=== PATIENT | female | born 1995 | race Caucasian/White ===

== ENCOUNTER 2016-06-26 07:19 | Emergency (ER) | payer OTHER ==
[2016-06-26 07:29] VITALS: BP 107/45
--- NOTE | 2016-06-26 08:06 | PROVIDER DOCUMENTATION ---
HPI-General Adult - General Chief Complaint: Cold Symptoms Stated Complaint: POSS BRONCHITIS Time Seen by Provider: 06/26/16 07:48 Source: patient Allergies/Adverse Reactions: Patient Allergies Allergy/AdvReac Type Severity Reaction Status Date / Time No Known Allergies Allergy Verified 06/26/16 07:45 Home Medications: Home Medication List Medication Instructions Recorded Confirmed Last Taken Type No Home Medications 06/26/16 06/26/16 Unknown History - History of Present Illness -Gen Adult Nature of Presenting Problems: Pt reports having "bronchitis" every winter and needing antibiotics. Now with one week history of non productive cough, sinus congestion but without sore throat, significant fever, myalgias, eetc. Associated Symptoms: reports: cough, EENT symptoms, sinus congestion/drainage. denies: chest pain, diaphoresis, diarrhea Similar Symptoms Previously?: Yes Recently seen or treated by another doctor?: No Review of Systems - Adult - REVIEW OF SYSTEMS - ADULT Constitutional: reports: no symptoms reported Eyes: reports: no symptoms reported Ears, Nose, Mouth & Throat: reports: no symptoms reported Cardiovascular: reports: no symptoms reported Respiratory: reports: see HPI Gastrointestinal: reports: no symptoms reported Genitourinary: reports: no symptoms reported Musculoskeletal: reports: no symptoms reported Integumentary: reports: no symptoms reported Neurological: reports: no symptoms reported Psychiatric: reports: no symptoms reported Endocrine: reports: no symptoms reported Hematologic/Lymphatic: reports: no symptoms reported Allergic/Immunologic: reports: no symptoms reported All Other Systems: Reviewed and Negative Past History - Adult - PAST MEDICAL HISTORY-ADULT Review of Records: reports: Nursing Assessment Review, Medications Reviewed Respiratory: reports: asthma Gastrointestinal: reports: GERD - PRIOR SURGERIES/PROCEDURES Surgical/Procedure History: reports: none - IMMUNIZATION STATUS Childhood Immunizations: UTD Flu Vaccine: See Nurse Assessment - FAMILY HISTORY Family History: reviewed, not pertinent, kidney stones (mom has history, and had problem passing 1mm stone) Physical Exam-General - PHYSICAL EXAM-ADULT Initial Vital Signs Reviewed: Yes - CONSTITUTIONAL General Appearance: appears well - EYES Eyes: PERRL/EOMI, pink conjunctivae - HEAD, EARS, NOSE, MOUTH & THROAT HENMT: moist mucous membranes, pharynx normal - NECK Neck: non-tender, full range of motion, supple - RESPIRATORY Respiratory: lungs clear - CARDIOVASCULAR Cardiovascular: normal peripheral pulses, regular rate, rhythm, no edema, no gallop - GASTROINTESTINAL (ABDOMEN) Abdominal Exam: normal bowel sounds, non tender - GENITOURINARY Female Genitalia/Pelvic Exam: deferred Male Genitalia: deferred Rectal Exam: deferred - MUSCULOSKELETAL Back Exam: no CVA tenderness Extremity: normal range of motion - SKIN Integumentary: normal turgor - NEUROLOGIC Neurologic: grossly normal - PSYCHIATRIC Psych/Mental Status: normal mood/affect Progress - PLAN OF CARE/RESULTS Progress/Plan/Lab Results: Vital Signs Temp Pulse Resp BP Pulse Ox 06/26/16 07:24 97.5 F L 75 18 107/45 100 No Known Allergies Allergy (Verified 06/26/16 07:45) No Home Medications 06/26/16 Departure - Departure Time of Disposition Order: 08:10 DIAGNOSIS: Viral syndrome Disposition: HOME 01 Certified Medical Emergency: Emergent Condition: Good Additional Instructions: Take Claritin D (OTC)
== END 2016-06-26 08:20 | disposition home or self-care (01) ==
LOC: ED 07:19
DX: B34.9 Viral infection, unspecified (principal); R09.81 Nasal congestion